=== PATIENT | male | born 1955 | race Hispanic/Latino ===

== ENCOUNTER → 2017-08-18 | Outpatient (CLI) | payer OTHER ==
[~2017-08-18] MED LIST: ACET1TAB25 PO
== END | disposition home or self-care (01) ==
LOC: RAH 09:33
PROVIDERS: ATTEND Family Medicine
DX: Z02.71 Encounter for disability determination (principal); M19.032 Primary osteoarthritis, left wrist; M19.042 Primary osteoarthritis, left hand
CPT/HCPCS: 73100; 73120

== ENCOUNTER 2022-06-01 15:54 | Emergency (ER) | payer OTHER ==
[~2022-06-01] VITALS: Ht 154.9 cm; Wt 66.2 kg
[~2022-06-01 15:54] MED LIST changes: +ACET-2079 PO; -ACET1TAB25 PO
[2022-06-01 16:21] LABS: APPEARANCE,URINE CLEAR (CLEAR); BILIRUBIN,URINE NEGATIVE (NEGATIVE); COLOR,URINE COLORLESS (YELLOW); GLUCOSE, URINE (UA) >=1000 mg/dL (NEGATIVE); KETONES,URINE NEGATIVE (NEGATIVE); LEUKOCYTE ESTERASE ,URINE NEGATIVE Leu/uL (NEGATIVE); NITRATE,URINE NEGATIVE (NEGATIVE); OCCULT BLOOD,URINE NEGATIVE (NEGATIVE); PROTEIN,URINE NEGATIVE (NEGATIVE); UROBILINOGEN,URINE 0.2 mg/dL (0.2-1.0)
[2022-06-01 16:24] VITALS: BP 140/78
[2022-06-01 16:24] LABS: RBC,URINE 0-1 /HPF (0-1)
[2022-06-01 16:38] LABS: BASOPHILS % (AUTO) 0.2 % (0.0-5.0); EOSINOPHILS % (AUTO) 1.1 % (0.0-8.0); HEMATOCRIT 31.8 % (42-54); LYMPHOCYTES % (AUTO) 16.6 % (21.0-51.0); MEAN CORPUSCULAR HEMOGLOBIN 21.5 pg (27.0-33.0); MEAN CORPUSCULAR HGB CONC 31.4 g/dL (32.0-36.0); MEAN CORPUSCULAR VOLUME 68.2 fL (79-99); MONOCYTES % (AUTO) 8.2 % (3.0-13.0); NEUTROPHILS % (AUTO) 73.6 % (40.0-77.0); PLATELET COUNT (AUTO) 395 K/uL (130-400); RED BLOOD CELL COUNT(AUTO) 4.66 MIL/uL (4.50-6.20); RED CELL DISTRIBUTION WIDTH 17.2 % (11.0-15.5); WHITE BLOOD COUNT (AUTO) 9.6 K/uL (4.8-10.8)
[2022-06-01 16:47] LABS: CREATININE 0.9 mg/dL (0.5-1.5)
[2022-06-01 16:52] LABS: TOTAL PROTEIN, SERUM 7.6 g/dL (6.0-8.3)
[2022-06-01] MEDS ORDERED: NAPR500T6 PO (18:28)
== END 2022-06-01 18:34 | disposition home or self-care (01) ==
LOC: EDH 15:54
DX: N20.2 Calculus of kidney with calculus of ureter (principal); E11.9 Type 2 diabetes mellitus without complications; I10 Essential (primary) hypertension; Z98.890 Other specified postprocedural states
CPT/HCPCS: 36415; 74176; 80053; 81001; 83690; 85025

== ENCOUNTER 2022-07-04 18:19 | Observation (INO) | payer OTHER ==
[~2022-07-04] VITALS: Ht 154.9 cm; Wt 63.2 kg
[~2022-07-04 18:19] MED LIST changes: +NAPR500T6 PO
[2022-07-04] MEDS ORDERED: HEPARIN 25,000 UNITS/250ML D5W 0 ML IV ONE (18:34)
[2022-07-04] MEDS ORDERED: ASPIRIN 325MG TAB ONE (18:34)
[2022-07-04] MEDS ORDERED: NITROGLYCERIN 0.4 MG SL TAB SL ONE (18:37)
[2022-07-04] MEDS: HEPARIN 5,000 UNIT VIAL ONE ×2 (18:39→18:42)
[2022-07-04] MEDS: HEPARIN 1,000 UNIT VIAL IVP SCH (18:42)
[2022-07-04 18:44] LABS: BASOPHILS % (AUTO) 0.2 % (0.0-5.0); EOSINOPHILS % (AUTO) 1.5 % (0.0-8.0); HEMATOCRIT 27.6 % (42-54); LYMPHOCYTES % (AUTO) 25.4 % (21.0-51.0); MEAN CORPUSCULAR HEMOGLOBIN 19.8 pg (27.0-33.0); MEAN CORPUSCULAR HGB CONC 31.9 g/dL (32.0-36.0); MEAN CORPUSCULAR VOLUME 62.2 fL (79-99); NEUTROPHILS % (AUTO) 64.7 % (40.0-77.0); PLATELET COUNT (AUTO) 453 K/uL (130-400); RED BLOOD CELL COUNT(AUTO) 4.44 MIL/uL (4.50-6.20); RED CELL DISTRIBUTION WIDTH 16.9 % (11.0-15.5); WHITE BLOOD COUNT (AUTO) 9.3 K/uL (4.8-10.8)
[2022-07-04 18:56] LABS: CREATININE 0.9 mg/dL (0.5-1.5); POTASSIUM 3.7 mmol/L (3.5-5.1)
[2022-07-04 19:00] LABS: INR 0.93 (0.85-1.15); PROTHROMBIN TIME 10.2 SEC (9.6-11.6)
[2022-07-04 19:00] LABS: APPEARANCE,URINE CLEAR (CLEAR); BILIRUBIN,URINE NEGATIVE (NEGATIVE); COLOR,URINE LIGHT-YELLOW (YELLOW); GLUCOSE, URINE (UA) >=1000 mg/dL (NEGATIVE); KETONES,URINE 10 mg/dL (NEGATIVE); LEUKOCYTE ESTERASE ,URINE NEGATIVE Leu/uL (NEGATIVE); NITRATE,URINE NEGATIVE (NEGATIVE); OCCULT BLOOD,URINE NEGATIVE (NEGATIVE); PROTEIN,URINE NEGATIVE (NEGATIVE); UROBILINOGEN,URINE 0.2 mg/dL (0.2-1.0)
[2022-07-04] MEDS ORDERED: NITROGLYCERIN 0.4 MG SL TAB SL PRN ×2 (19:00→23:30)
[2022-07-04] MEDS ORDERED: ASPIRIN 325MG EC TAB PO ONE (19:00)
[2022-07-04] MEDS ORDERED: ASPIRIN 325MG TAB PO ONE (19:00)
[2022-07-04 19:01] LABS: PARTIAL THROMBOPLASTIN TIME 26.2 SEC (26.3-35.5)
[2022-07-04 19:01] LABS: AMPHET/METH SCREEN,URINE NEGATIVE (NEGATIVE); BARBITURATE SCREEN, URINE NEGATIVE (NEGATIVE); BENZODIAZEPINES SCREEN,URINE NEGATIVE (NEGATIVE); CANNABINOID SCREEN,URINE NEGATIVE (NEGATIVE); COCAINE SCREEN,URINE NEGATIVE (NEGATIVE); OPIATE SCREEN,URINE NEGATIVE (NEGATIVE); PHENCYCLIDINE SCREEN,URINE NEGATIVE (NEGATIVE)
[2022-07-04 19:03] LABS: ALBUMIN 3.9 g/dL (3.5-5.0); TOTAL PROTEIN, SERUM 7.4 g/dL (6.0-8.3)
[2022-07-04 19:18] LABS: RBC,URINE 0-1 /HPF (0-1)
[2022-07-04] MEDS ORDERED: MORPHINE 4 MG SYG IVP ONE (19:30)
[2022-07-04] MEDS ORDERED: MAG/ALUM/SIMETH 30 ML UDCUP PO ONE (19:30)
[2022-07-04] MEDS ORDERED: DICYCLOMINE HCL 10 MG/5 ML ML PO ONE (19:30)
[2022-07-04] MEDS ORDERED: LIDOCAINE HCL 2% VISCOUS 15 ML UDCUP PO ONE (19:30)
[2022-07-04] MEDS ORDERED: ONDANSETRON 4MG INJ IV ONE (19:30)
[2022-07-04] MEDS ORDERED: IOHEXOL 350 MG/ML 100ML INFUS..BTL IV ONE (19:44)
[2022-07-04] MEDS ORDERED: LACTULOSE 20 GM/30 ML UDCUP PO PRN (23:30)
[2022-07-04] MEDS ORDERED: HYDRALAZINE 20MG/ML VIAL IV PRN (23:30)
[2022-07-04] MEDS ORDERED: ACETAMINOPHEN 325 MG TAB PO PRN (23:30)
[2022-07-04] MEDS ORDERED: GUAIFENESIN-DM 200/20 MG 10 ML PO PRN (23:30)
[2022-07-04] MEDS ORDERED: MAG/ALUM/SIMETH 30 ML UDCUP PO PRN (23:30)
[2022-07-04] MEDS ORDERED: ONDANSETRON 4MG INJ IV PRN (23:30)
[2022-07-04] MEDS ORDERED: GLUCAGON 1MG KIT 1 MG ML IM PRN (23:30)
[2022-07-04] MEDS ORDERED: DIPHENHYDRAMINE HCL 25 MG CAPSULE PO PRN (23:30)
[2022-07-04] MEDS ORDERED: ACETAMINOPHEN WITH CODEINE 1 TAB TAB PO PRN ×2 (23:30)
[2022-07-04] MEDS ORDERED: DEXTROSE 50%-WATER 50 ML DISP.SYRIN IV PRN (23:30)
[2022-07-04 23:52] LABS: RETICULOCYTE % (AUTO) 1.53 % (0.42-2.23)
[2022-07-05] VITALS (7 sets, daily range): BP systolic 113–131; BP diastolic 67–81
[2022-07-05 00:18] LABS: HEMOGLOBIN A1C 7.3 % (4.0-6.0)
[2022-07-05 00:26] LABS: % IRON SATURATION 2.5 % (30-44)
[2022-07-05] MEDS: 0.9%NACL 1000ML 1,000 ML IV SCH ×3 (01:07→18:22)
[2022-07-05] MEDS: INSULIN HUMULIN R 100 UNIT/ML 3ML SQ SCH ×4 (06:38→21:00)
[2022-07-05 10:25] LABS: HEMATOCRIT 45.2 % (42-54); LYMPHOCYTES % (AUTO) 4.5 % (21.0-51.0); MEAN CORPUSCULAR HEMOGLOBIN 33.6 pg (27.0-33.0); MONOCYTES % (AUTO) 7.1 % (3.0-13.0); NEUTROPHILS % (AUTO) 87.9 % (40.0-77.0); PLATELET COUNT (AUTO) 171 K/uL (130-400); RED BLOOD CELL COUNT(AUTO) 4.43 MIL/uL (4.50-6.20); RED CELL DISTRIBUTION WIDTH 12.7 % (11.0-15.5); WHITE BLOOD COUNT (AUTO) 12.5 K/uL (4.8-10.8)
[2022-07-05 10:35] LABS: ALBUMIN 3.4 g/dL (3.5-5.0); CREATININE 0.7 mg/dL (0.5-1.5); MAGNESIUM 1.7 mg/dL (1.80-2.40)
[2022-07-05] MEDS ORDERED: MAGNESIUM 2GM PREMIX 50ML 50 ML IV SCH ×2 (11:00)
[2022-07-05 13:57] LABS: BASOPHILS % (AUTO) 0.2 % (0.0-5.0); EOSINOPHILS % (AUTO) 2.6 % (0.0-8.0); LYMPHOCYTES % (AUTO) 18.1 % (21.0-51.0); MEAN CORPUSCULAR HEMOGLOBIN 19.6 pg (27.0-33.0); MEAN CORPUSCULAR HGB CONC 31.2 g/dL (32.0-36.0); MONOCYTES % (AUTO) 8.1 % (3.0-13.0); NEUTROPHILS % (AUTO) 70.8 % (40.0-77.0); PLATELET COUNT (AUTO) 416 K/uL (130-400); RED BLOOD CELL COUNT(AUTO) 4.13 MIL/uL (4.50-6.20); RED CELL DISTRIBUTION WIDTH 16.8 % (11.0-15.5)
[2022-07-05] MEDS: ENOXAPARIN SODIUM 40 MG/0.4 ML SYRINGE SQ SCH (16:15)
[2022-07-05] MEDS: HEPARIN 1,000 UNIT VIAL IVP SCH (18:22)
[2022-07-05] MEDS: PANTOPRAZOLE 40 MG/VIAL IVP SCH ×2 (21:00→21:22)
[2022-07-06 05:00] VITALS: BP 105/66
[2022-07-06] MEDS ORDERED: CYANOCOBALAMIN (VITAMIN B-12) 1000 MCG/ML 1ML VIAL IM SCH (05:30)
[2022-07-06] MEDS: INSULIN HUMULIN R 100 UNIT/ML 3ML SQ SCH ×2 (05:51→11:30)
[2022-07-06 05:52] LABS: BASOPHILS % (AUTO) 0.2 % (0.0-5.0); EOSINOPHILS % (AUTO) 3.8 % (0.0-8.0); HEMATOCRIT 26.8 % (42-54); LYMPHOCYTES % (AUTO) 29.7 % (21.0-51.0); MEAN CORPUSCULAR HGB CONC 29.5 g/dL (32.0-36.0); MEAN CORPUSCULAR VOLUME 64.4 fL (79-99); MONOCYTES % (AUTO) 8.1 % (3.0-13.0); NEUTROPHILS % (AUTO) 57.8 % (40.0-77.0); PLATELET COUNT (AUTO) 410 K/uL (130-400); RED BLOOD CELL COUNT(AUTO) 4.16 MIL/uL (4.50-6.20); RED CELL DISTRIBUTION WIDTH 16.9 % (11.0-15.5); WHITE BLOOD COUNT (AUTO) 8.3 K/uL (4.8-10.8)
[2022-07-06 06:21] LABS: ALBUMIN 3.3 g/dL (3.5-5.0); CREATININE 0.6 mg/dL (0.5-1.5); MAGNESIUM 2.1 mg/dL (1.80-2.40); POTASSIUM 4.1 mmol/L (3.5-5.1); THYROID STIMULATING HORMONE 4.84 uIU/mL (0.36-3.74); TOTAL PROTEIN, SERUM 6.3 g/dL (6.0-8.3)
[2022-07-06 08:00] VITALS: BP 110/68
[2022-07-06] MEDS: ENOXAPARIN SODIUM 40 MG/0.4 ML SYRINGE SQ SCH (09:00)
[2022-07-06] MEDS ORDERED: IRON SUCROSE COMPLEX 300 MG in 0.9% NACL 250ML 250 ML IV SCH (09:00)
[2022-07-06 11:56] VITALS: BP 138/80
[2022-07-06] MEDS ORDERED: METF-444 PO (13:06)
[2022-07-06] MEDS ORDERED: ATOR40TA69 PO (13:06)
[2022-07-06] MEDS ORDERED: LACTULOSE 20 GM/30 ML UDCUP PO SCH (21:00)
== END 2022-07-06 15:50 | disposition left against medical advice (07) ==
LOC: EDH 18:19 → EDHIP 23:05 → 4CH 07-05 00:14
PROVIDERS: ADMIT Hospitalist; ATTEND Hospitalist
DX: K56.600 Partial intestinal obstruction, unspecified as to cause (principal); I71.21 Aneurysm of the ascending aorta, without rupture; D64.9 Anemia, unspecified; I10 Essential (primary) hypertension; I35.0 Nonrheumatic aortic (valve) stenosis; I44.0 Atrioventricular block, first degree; E87.1 Hypo-osmolality and hyponatremia; E11.9 Type 2 diabetes mellitus without complications; E78.5 Hyperlipidemia, unspecified; E03.9 Hypothyroidism, unspecified; E86.1 Hypovolemia; N40.0 Benign prostatic hyperplasia without lower urinary tract symptoms; Z79.899 Other long term (current) drug therapy
CPT/HCPCS: 96361 ×3; 96375 ×3; 99285; 83036; 84484 ×4; 80053 ×3; 80305; 82728; 85025 ×4; 85610; 85730; 82607; 81001; 36415 ×3; 71045; 74174; 71275; 93005; 96372 ×2; 96365; 82550 ×3; 83735 ×2; 83874 ×3; 83690; 82948 ×6; 93306; 93356; 84443; 85045; 82746; G0378 ×40; J2405; J2270; J1644 ×3; Q9967; J3475; C9113; J1650; J1756; J7050; J3420

== ENCOUNTER → 2022-10-14 | Outpatient (CLI) | payer OTHER ==
[~2022-10-14] MED LIST changes: -ACET-2079 PO; +ATOR40TA69 PO; +GADOTERATE MEGLUMINE 10 MMOL/20 ML VIAL IV ONE; +METF-444 PO; -NAPR500T6 PO
== END | disposition home or self-care (01) ==
LOC: RAH 08:12
PROVIDERS: ATTEND Surgery Surgical Oncology
DX: C25.1 Malignant neoplasm of body of pancreas (principal); K80.20 Calculus of gallbladder without cholecystitis without obstruction
CPT/HCPCS: 74183; A9575